=== PATIENT | female | born 1990 ===

== ENCOUNTER 2020-09-29 06:43 | Inpatient (IN) | payer OTHER ==
[2020-09-29] VITALS (29 sets, daily range): BP systolic 105–146; BP diastolic 61–96
[~2020-09-29] VITALS: Ht 165.1 cm; Wt 83.3 kg
[2020-09-29] MEDS ORDERED: MAPA500T2 PO (07:19)
[2020-09-29] MEDS ORDERED: PRENTAB9 PO (07:19)
[2020-09-29 09:11] LABS: APPEARANCE, URINE CLEAR (CLEAR); BACTERIA, URINE AUTO NEGATIVE (NEGATIVE); BILIRUBIN, URINE AUTO NEGATIVE (NEGATIVE); BLOOD, URINE BLOOD 1+ (NEGATIVE); COLOR, URINE STRAW (YELLOW); GLUCOSE, URINE (UA) AUTO NEGATIVE (NEGATIVE); KETONE, URINE AUTO NEGATIVE (NEGATIVE); LEUKOCYTE ESTERASE, URINE AUTO NEGATIVE (NEGATIVE); NITRITE, URINE AUTO NEGATIVE (NEGATIVE); PROTEIN, URINE AUTO NEGATIVE (NEGATIVE); RBC, URINE AUTO 0 /HPF (0-3); SPECIFIC GRAVITY URINE AUTO 1.002 (1.002-1.035); SQUAMOUS EPITHELIAL CELL UR AU 4 /HPF (0-6); UROBILINOGEN, URINE AUTO 0.2 mg/dL (0.0-2.0); WBC, URINE AUTO 0 /HPF (0-3)
[2020-09-29 09:44] LABS: CREATININE,RANDOM URINE 18.6 MG/DL; TOTAL PROTEIN,RANDOM URINE < 5.0 MG/DL (0.0-12.0)
--- NOTE | 2020-09-29 10:03 | REP ---
INDICATION: HTN. COMPARISON: None. TECHNIQUE: Real-time sonographic evaluation of gravid uterus performed. FINDINGS: There is a single living intrauterine gestation. The estimated gestational age is 30 weeks 3 days, EDC 10/10/2020. position cephalic. Placenta anterior and grade 3 with no previa or abruption. heart rate 144 beats per minute. There is oligohydramnios. REBECCA 1.8, normal range 7.3-23.3. Biophysical profile score 2/8. Breathing 2 points. Tone, movement, amniotic fluid volume 0 points. SD ratio umbilical artery 3.27, normal range 1.53-3.33. RI 0.69, normal range is 0.42-0.70. IMPRESSION: Biophysical profile 2/8. <Electronically signed by Colin Thornton > 09/29/20 0959
[2020-09-29 10:14] LABS: HEMATOCRIT 37.7 % (36.0-47.0); HEMOGLOBIN 11.9 g/dl (12.0-15.5); MEAN CORPUSCULAR HEMOGLOBIN 28.8 pg (27.0-33.0); MEAN CORPUSCULAR HGB CONC 31.6 g/dl (32.0-36.5); MEAN CORPUSCULAR VOLUME 91.3 fl (80.0-96.0); PLATELET COUNT, AUTOMATED 219 10^3/uL (150-450); RED BLOOD COUNT 4.13 10^6/uL (4.00-5.40); WHITE BLOOD COUNT 13.1 10^3/uL (4.0-10.0)
[2020-09-29 10:35] LABS: ALBUMIN 2.7 GM/DL (3.2-5.2); ALT/SGPT 11 U/L (12-78); BILIRUBIN,TOTAL 0.3 MG/DL (0.2-1.0); BLOOD UREA NITROGEN 5 MG/DL (7-18); CALCIUM LEVEL 8.2 MG/DL (8.5-10.1); CARBON DIOXIDE LEVEL 24 MEQ/L (21-32); CHLORIDE LEVEL 108 MEQ/L (98-107); GLOMERULAR FILTRATION RATE > 60.0 (>60); GLUCOSE, FASTING 79 MG/DL (70-100); LDH LACTATE DEHYDROGENASE 198 U/L (84-246); POTASSIUM SERUM 3.9 MEQ/L (3.5-5.1); SODIUM LEVEL 139 MEQ/L (136-145); TOTAL PROTEIN 6.4 GM/DL (6.4-8.2); URIC ACID 5.3 MG/DL (2.6-6.0)
[2020-09-29] MEDS ORDERED: LR 1,000 ML IV SCH (10:47)
[2020-09-29] MEDS ORDERED: LACTATED RINGER'S 1000 ML IV STA (10:47)
[2020-09-29] MEDS ORDERED: miSOPROStol 25MCG 1/4 TABLET PV SCH (11:00)
--- NOTE | 2020-09-29 11:18 | IPNPDOC ---
Obstetrical Progress Note Date of Service Sep 29, 2020 Subjective 30 y/o at 38w3d with KEVIN of 10/10/2020 presents today with her spouse for mucousy brown blood tinged discharge and contractions. She denies any leaking of fluid and reports positive movement. She reports headache once a day that tends to resolve spontaneously. She denies chest pain, RUQ pain, and visual changes. Objective Vital Signs Date Time Temp Pulse Resp B/P (MAP) Pulse Ox O2 Delivery O2 Flow Rate FiO2 09/29/20 07:21 18 115/69 (84) 09/29/20 07:07 98.5 102 She has had mildly elevated BP since she arrived to triage of 133/93 and 128/94. BPP: 2/8 and REBECCA: 1.8 cm Assessment Heart Rate (FHR): 155 Variability: Moderate Accelerations: Positive Decelerations: None Tocometer Contractions: Yes Frequency: irregular Sterile Vaginal Examination Dilation: None Effacement (%): 30% Station: -3 Cervical Consistency: Firm Cervical Position: Posterior Postion/Presentation: Cephalic presentation Assessment and Plan Age: 30 : 1 Term: 0 Pre-term: 0 Abortions: 0 Livin EGA at Admission: 38 (+3) Weeks & Days 38w3d Status: Reassuring Group B Streptococcus: Negative Anticipate: Other Additional Comments Will admit to L&D for IOL for oligohydramnios and BPP 11/03 JOZEF CLAY CNM Sep 29, 2020 09:06
[2020-09-29] MEDS ORDERED: OXYTOCIN 30 UNITS IN 0.9% NaCl 500ML IV BAG (J2590) As Ordered ONE (11:48)
[2020-09-29] MEDS: OXYTOCIN DRIP 30 UNITS in IV 1 EA IV SCH (12:10)
[2020-09-29] MEDS: LR 1,000 ML IV SCH ×2 (12:11→20:34)
--- NOTE | 2020-09-29 12:38 | HPEPDOC ---
Obstetrical History & Physical General Date of Admission Sep 29, 2020 at 10:13 History of Present Illness 30 yo at 38w3d with KEVIN of 10/10/2020 presents to L&D with complaints of brown blood streaked mucousy dicharge and contractions since last night. She has had mildly elevated BP today. She reports daily headaches that have resolved spontaneously. She denies headache, chest pain, RUQ pain, visual changes, leaking of fluid at this time. She reports positive movement. 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: No pertinent history Past Medical History Medical History Migraines, Rh negative, and vegetarian Surgical History: Appendectomy, Tonsilectomy Family History Significant Family History: No pertinent family hx Social History Marital Status: Family situation: Spouse/partner home Psychosocial History: No pertinent psych hx * Smoker: non-smoker Alcohol: Denies Drugs: denies Abuse Violence Screening Have you been hit/kicked/slapp: No Have you been sexually assault: No Imunizations Tdap status: current Influenza Status: current Allergies Coded Allergies: No Known Drug Allergies (Verified Allergy, Unknown, 09/29/20) Medications Scheduled No.137/Iron/Folic Acd ( Vitamin Tablet) 1 Each Tablet, 1 TAB PO DAILY Miscellaneous Medications Acetaminophen (Mapap) 500 Mg Tablet, 1,000 MG PO Physical Examination Physical Examination GENERAL: Alert and oriented times three. BREAST: . ABDOMEN: Gravid and non-tender to touch. FETUS: Is vertex (VTX) by sterile vaginal examination (SVE), fetus is vertex (VTX) by José. HEART RATE: Regular rate and rhythm. LUNGS: Clear to auscultation (CTA). EXTREMITIES: No edema. No clonus. Deep tendon reflexes (DTRs) + 2. Vital Signs/I&O Vital Signs Date Time Temp Pulse Resp B/P (MAP) Pulse Ox O2 Delivery O2 Flow Rate FiO2 09/29/20 07:21 18 115/69 (84) 09/29/20 07:07 98.5 102 Laboratory Data 24H LABS Laboratory Tests 2 09/29/20 08:52: Urine Color STRAW, Urine Appearance CLEAR, Urine pH 7.0, Urine Specific [place] 1.002, Urine Protein NEGATIVE, Urine Glucose (Auto)(UA) NEGATIVE, Urine Ketones (Auto) NEGATIVE, Urine Blood 1+H, Urine Nitrite NEGATIVE, Urine Bilirubin NEGATIVE, Urine Urobilinogen 0.2, Urine Leukocyte Esterase (Auto) NEGATIVE, Urine WBC (Auto) 0, Urine RBC (Auto) 0, Urine Hyaline Casts (Auto) 0, Urine Bacteria (Auto) NEGATIVE, Urine Squamous Epithelial Cells 4, Urine Sperm (Auto) , Urine Random Creatinine 18.6, Urine Random Total Protein < 5.0 09/29/20 09:49: Nucleated Red Blood Cells % (auto) 0.0, Anion Gap 7L, Glomerular Filtration Rate > 60.0, Uric Acid 5.3, Calcium Level 8.2L, Total Bilirubin 0.3, Aspartate Amino Transf (AST/SGOT) 13, Alanine Aminotransferase (ALT/SGPT) 11L, Alkaline Phos phatase 159H, Lactate Dehydrogenase 198, Total Protein 6.4, Albumin 2.7L, Albumin/Globulin Ratio 0.7L 09/29/20 10:31: Serology Scanned Report Hepatitis B Testing 09/29/20 11:02: CBC/BMP Laboratory Tests 09/29/20 09:49 Pertinent Laboratoy Data Blood Type: A- RBC Antibody Screen: Negative HIV: Negative Hepatitis B: Negative Rapid Plasma Reagin: Nonreactive Rubella: Immune Varicella: Immune Chlamydia/Gonorrhea: Negative Group B Streptococcus: Negative Cystic Fibrosis: Negative Glucose Tolerance Test: 118 Steroid Therapy Steroid Therapy: No Vaginal Examination Dilation: None Effacement: 30% Station: -3 Cervical Consistency: Firm Cervical Position: Posterior Presentation: Cephalic presentation Position: Vertex (occiput) Assessment Heart Rate (FHR): 145 Variability: Moderate Accelerations: Positive Decelerations: None Tocometer Contractions: Yes Frequency: irregular Multi-drug resistant Organism: No history of MDRO Assessment/Plan Assessment 30 yo at 38w3d with KEVIN of 10/10/2020 presents to L&D with complaints of brown blood streaked mucousy dicharge and contractions since last night. She has had mildly elevated BP today. She reports daily headaches that have resolved spontaneously. She denies headache, chest pain, RUQ pain, visual changes, leaking of fluid at this time. She reports positive movement. Plan Admit and orient. Barrel Planer and consent. Diet: clear liquids. Group B Streptococcus (GBS) negative. Labs and intravenous (IV) per unit protocol. Counseled on Cytotec, Pitocin and induction of labor (IOL). Lactated Ringers (LR): Bolus 1000 mL, then at 125 mL/hr. Anticipate normal spontaneous delivery (). C-S as appropriate. Oxytocin for PIER MASTER ASSISTANT x30 minutes, if negative, then will proceed with IOL as planned with cytotec Dr. Lozano updated on patient status, who agrees with plan Labor and Delivery Counseling Discussed with patient and spouse using cytotec vaginally for IOL, IV pain medication and epidural, IOL and using pitocin for augmentation once IOL has started and progressed, risk of hemorrhage, and risk of section. We discussed oligohydramnios and BPP results and need to start IOL today. JOZEF CLAY CNM Sep 29, 2020 11:37
[2020-09-29 15:03] LABS: RSV AMPLIFICATION NEGATIVE (NEGATIVE)
[2020-09-29] MEDS ORDERED: diphenhydrAMINE 25MG CAP PO ONE (21:45)
[2020-09-29] MEDS ORDERED: miSOPROStol 50MCG 1/2 TABLET PO ONE (21:45)
[2020-09-29] MEDS ORDERED: BUTORPHANOL 2 MG/ML INJ (J0595) IV ONE (23:45)
[2020-09-29] MEDS ORDERED: PROMETHAZINE INJ 25 MG/ML VIAL (J2550) IV ONE (23:45)
[2020-09-30] VITALS (36 sets, daily range): BP systolic 111–161; BP diastolic 59–95
--- NOTE | 2020-09-30 00:51 | IPNPDOC ---
Obstetrical Progress Note Date of Service Sep 30, 2020 Subjective Patient endorses pain with contractions. She also expresses frustration with length of induction and interested in . Objective Vital Signs Date Time Temp Pulse Resp B/P (MAP) Pulse Ox O2 Delivery O2 Flow Rate FiO2 09/29/20 23:44 75 16 111/68 (82) 09/29/20 18:13 99.3 Assessment Heart Rate (FHR): 150 Variability: Moderate Accelerations: None Decelerations: None Heart Rate Tracing: Category I Tocometer Contractions: Yes Frequency: irregular Sterile Vaginal Examination Dilation: 1cm Effacement (%): 50% Station: -2 Cervical Consistency: Medium Cervical Position: Posterior Postion/Presentation: Cephalic presentation Assessment and Plan Status: Reassuring Group B Streptococcus: Negative Anticipate: Vaginal Delivery Additional Comments 30yo at 38+4wks admitted for oligohydramnios with BPP 2/8. 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 She received 2 doses and progressed to 1/50/-3. Extensive conversation with patient regarding continuing IOL vs elective c/s. Patient ultimately desired to continue with IOL at this time. Will give stadol/phenergan for pain. Will give continue cytotec protocol overnight. Plan to allow to eat breakfast in AM. Patient desires to proceed, safe to continue. DEWAYNE SABILLON DO Sep 30, 2020 00:51
[2020-09-30] MEDS ORDERED: miSOPROStol 50MCG 1/2 TABLET PO ONE (02:00)
[2020-09-30] MEDS ORDERED: FENTANYL 2MCG/ML ROPIVACAINE 0.2% IN 0.9% NACL 100ML IVBAG As Ordered ONE (05:29)
--- NOTE | 2020-09-30 06:02 | IPNPDOC ---
Obstetrical Progress Note Date of Service Sep 30, 2020 Subjective Patient desires epidural for pain mgmt Objective Vital Signs Date Time Temp Pulse Resp B/P (MAP) Pulse Ox O2 Delivery O2 Flow Rate FiO2 09/29/20 23:44 75 16 111/68 (82) 09/29/20 18:13 99.3 Assessment Heart Rate Tracing: Category I Tocometer Contractions: Yes Frequency: every 1-5 min. Sterile Vaginal Examination Dilation: 3 cm Effacement (%): 70% Station: -2 Cervical Consistency: Soft Cervical Position: Middle Postion/Presentation: Cephalic presentation Assessment and Plan Status: Reassuring Group B Streptococcus: Negative Additional Comments 30yo at 38+2wks presenting for IOL for oligo with BPP 2/8 now s/p 3 doses of cytotec progressing to 3/70/-2. FHRT cat I. Patient to get epidural now as desired. Will start pitocin protocol once patient comfortable with epidural. Patient desires to proceed, safe to continue. DEWAYNE SABILLON DO Sep 30, 2020 06:02
[2020-09-30] MEDS ORDERED: EPIDURAL/PCA KEYS XX PRN (06:25)
[2020-09-30] MEDS ORDERED: diphenhydrAMINE 50MG/ML VIAL (J1200) IV PRN (06:25)
[2020-09-30] MEDS ORDERED: REFRIGERATOR IV KEYS XX PRN (06:25)
[2020-09-30] MEDS ORDERED: EPIDURAL COMMENT XX SCH (06:25)
[2020-09-30] MEDS ORDERED: ePHEDrine SULFATE 25 MG/5 ML(5MG/ML) SYRINGE IV PRN (06:25)
[2020-09-30] MEDS ORDERED: ONDANSETRON 4MG/2ML VIAL IV PRN ×2 (06:25→21:30)
[2020-09-30] MEDS ORDERED: NALOXONE INJ 0.4MG/1ML VIAL (J2310 PER 1MG) IV PRN (06:25)
[2020-09-30] MEDS ORDERED: LACTATED RINGER'S 1000 ML IV PRN (06:25)
[2020-09-30] MEDS: FENTANYL/ROPIVACAINE/NACL BAG 100 ML EPIDURAL SCH ×2 (07:00→14:35)
--- NOTE | 2020-09-30 08:19 | IPNPDOC ---
Obstetrical Progress Note Date of Service Sep 30, 2020 Subjective 30 y/o at 38w4d with KEVIN of 10/10/2020 admitted for oligohydramnios and BPP of 2/8. She is comfortable with her epidural. She has supportive family at the bedside. Objective Vital Signs Date Time Temp Pulse Resp B/P (MAP) Pulse Ox O2 Delivery O2 Flow Rate FiO2 09/29/20 23:44 75 16 111/68 (82) 09/29/20 18:13 99.3 Assessment Heart Rate (FHR): 145 Variability: Moderate Accelerations: Present Decelerations: Variable Tocometer Contractions: Yes Frequency: irregular, other (every 3-5 minutes) Assessment and Plan Age: 30 : 1 Term: 0 Pre-term: 0 Abortions: 0 Livin EGA at Admission: 38 (+3) Weeks & Days 38w4d Status: Reassuring Group B Streptococcus: Negative Anticipate: Vaginal Delivery Additional Comments Will start JOZEF Galo CNM Sep 30, 2020 08:17
[2020-09-30] MEDS: OXYTOCIN DRIP 30 UNITS in IV 1 EA IV SCH (08:29)
[2020-09-30] MEDS: LR 1,000 ML IV SCH ×3 (08:33→16:14)
--- NOTE | 2020-09-30 11:00 | IPNPDOC ---
Obstetrical Progress Note Date of Service Sep 30, 2020 Subjective 30 y/o at 38w4d with KEVIN of 10/10/2020 admitted for oligohydramnios and BPP of 2/8. She is comfortable with her epidural and asleep. She has supportive family at the bedside. Objective Vital Signs Date Time Temp Pulse Resp B/P (MAP) Pulse Ox O2 Delivery O2 Flow Rate FiO2 09/30/20 09:28 76 16 116/66 (83) 09/30/20 08:13 100 Room Air 09/30/20 07:27 98.3 Assessment Heart Rate (FHR): 155 Variability: Moderate Accelerations: None Decelerations: Variable Tocometer Contractions: Yes Frequency: other (every 3-4 min ) Sterile Vaginal Examination Dilation: 8 cm Effacement (%): 80% Station: -1 Postion/Presentation: Cephalic presentation Assessment and Plan Age: 30 : 1 Term: 0 Pre-term: 0 Abortions: 0 Livin EGA at Admission: 38 (+3) Weeks & Days 38w4d Status: Reassuring Group B Streptococcus: Negative Anticipate: Vaginal Delivery JOZEF CLAY CNM Sep 30, 2020 11:00
--- NOTE | 2020-09-30 15:26 | IPNPDOC ---
Obstetrical Progress Note Date of Service Sep 30, 2020 Subjective 30 y/o at 38w4d with KEVIN of 10/10/2020 admitted for oligohydramnios and BPP of 2/8. She is comfortable with her epidural and asleep. She denies any urge to push at this time. She has supportive family at the bedside. She had SROM'd for clear fluid. Objective Vital Signs Date Time Temp Pulse Resp B/P (MAP) Pulse Ox O2 Delivery O2 Flow Rate FiO2 09/30/20 13:58 98 16 125/77 (93) 09/30/20 13:28 98.4 09/30/20 08:13 100 Room Air Cervical exam 10/100/+1, practice pushing through 2 contractions with no descent of head with practice pushing. Pitocin at 4 mu/min Assessment Heart Rate (FHR): 165 Variability: Moderate Accelerations: Present Decelerations: Variable Tocometer Contractions: Yes Frequency: regular, other (every 3-4 minutes) Sterile Vaginal Examination Dilation: complete Effacement (%): 100% Station: +1, +2 Postion/Presentation: Cephalic presentation Assessment and Plan Age: 30 : 1 Term: 0 Pre-term: 0 Abortions: 0 Livin EGA at Admission: 38 (+3) Weeks & Days 38w4d Group B Streptococcus: Negative Anticipate: Vaginal Delivery (Will continue to labor down until she has urge to push or will trial pushing again in 1 hour) JOZEF CLAY CNM Sep 30, 2020 15:26
--- NOTE | 2020-09-30 17:53 | IPNPDOC ---
Text Note Date of Service The patient was seen on 09/30/20. NOTE Review of progress to date . admitted 38.3 weeks, contractions mild mid range bp us BPP 2/8 with oligohydramnios . had Cytotec,epidural and Pitocin. at 1530 hours was fully no urge to push. evaluate at 1730 hours has urge to push, pelvic position rot moulded category 1 with tachycardia no decelerations variables noted.Plan is to attempt pushing if no progress then delivery by primary cs due to CPD . 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
[2020-09-30] MEDS ORDERED: ceFAZolin 2 GM/D5W 50 ML IV BAG (J0690 PER 500MG) As Ordered ONE (20:02)
[2020-09-30] MEDS ORDERED: OXYTOCIN INJ 10 UNITS/ML VIAL (J2590) As Ordered ONE (20:05)
[2020-09-30] MEDS ORDERED: OXYTOCIN 30 UNITS IN 0.9% NaCl 500ML IV BAG (J2590) As Ordered ONE ×2 (20:06→21:17)
[2020-09-30] MEDS ORDERED: LIDOCAINE PRES-FREE 2% 10ML AMP As Ordered ONE (20:07)
[2020-09-30 20:32] LABS: CORD GAS ABE V -7.1; CORD GAS HCO3 V 21.4 MEQ/L; CORD GAS PCO2 V 54.4 mmHg; CORD GAS PH V 7.213 UNITS; CORD GAS SBC V 17.6 MEQ/L; CORD GAS TCO2 V 23.1 MEQ/L
[2020-09-30 20:33] LABS: CORD GAS ABE A -8.8; CORD GAS HCO3 A 22.1 MEQ/L; CORD GAS O2 SAT A < 15.0 %; CORD GAS PCO2 A 71.1 mmHg; CORD GAS PH A 7.111 UNITS; CORD GAS PO2 A < 10.0 mmHg; CORD GAS TCO2 A 24.3 MEQ/L
[2020-09-30] MEDS ORDERED: PHENYLephrine 500MCG 5ML (100MCG/ML) SYRINGE As Ordered ONE (20:44)
[2020-09-30] MEDS ORDERED: propofoL 200 MG/20 ML VIAL As Ordered ONE (20:45)
[2020-09-30] MEDS ORDERED: KETOROLAC 60MG 2ML VIAL As Ordered ONE (20:46)
[2020-09-30] MEDS ORDERED: BENZOCAINE 20% HEMORRHOIDAL OINTMENT 28GM TUBE TOP PRN (21:15)
[2020-09-30] MEDS ORDERED: OXYTOCIN DRIP 30 UNITS in IV 1 EA IV ONE (21:15)
[2020-09-30] MEDS ORDERED: MEASLES,MUMPS,RUBELLA VACCINE INJ (MMR-II) (90707) SC SCH (21:15)
[2020-09-30] MEDS ORDERED: DOCUSATE SODIUM 100MG CAPSULE PO PRN (21:15)
[2020-09-30] MEDS ORDERED: ANUSOL HC CREAM 30GM TOP PRN (21:15)
[2020-09-30] MEDS ORDERED: IBUPROFEN 600MG TAB PO PRN (21:15)
[2020-09-30] MEDS ORDERED: RHOGAM 300 MCG (1500 IU) INJ (J2790) IM SCH (21:15)
[2020-09-30] MEDS ORDERED: IBUPROFEN 800 MG TAB PO PRN (21:15)
[2020-09-30] MEDS ORDERED: OXYTOCIN INJ 10 UNITS/ML VIAL (J2590) IV ONE (21:15)
[2020-09-30] MEDS ORDERED: METHYLERGONOVINE MALEATE 0.2 MG TAB PO PRN (21:15)
[2020-09-30] MEDS ORDERED: MOM 30ML SUSPENSION UDC PO PRN (21:15)
[2020-09-30] MEDS ORDERED: ACETAMINOPHEN TAB 650MG DOSE (2X325MG) PO PRN (21:15)
[2020-09-30] MEDS ORDERED: KETOROLAC 30 MG/ML 1ML VIAL IV PRN (21:30)
[2020-09-30] MEDS: ACETAMINOPHEN 500 MG TAB PO PRN (22:55)
[2020-10-01 06:30] VITALS: BP 126/86
[2020-10-01] MEDS: ACETAMINOPHEN 500 MG TAB PO PRN ×3 (06:43→20:09)
[2020-10-01 07:13] LABS: HEMATOCRIT 26.8 % (36.0-47.0); HEMOGLOBIN 8.3 g/dl (12.0-15.5); MEAN CORPUSCULAR VOLUME 93.7 fl (80.0-96.0); PLATELET COUNT, AUTOMATED 151 10^3/uL (150-450); RED BLOOD COUNT 2.86 10^6/uL (4.00-5.40); WHITE BLOOD COUNT 18.9 10^3/uL (4.0-10.0)
[2020-10-01] MEDS ORDERED: IBUPROFEN 600MG TAB PO PRN (08:00)
[2020-10-01] MEDS: PRENATAL VITAMINS CHEWABLE TABLET PO SCH (08:02)
--- NOTE | 2020-10-01 08:39 | IPNPDOC ---
Progress Note Date of Service: Oct 01, 2020 Day#: 1 Progress Note SUBJECT: 30 year-old 1 now Para 1 status post complicated spontaneous vaginal delivery at 38.3 weeks' on 09/30/20 of a FEMALE 6 pounds 11 ounces 3020 grams) with post vaginal laceration and repair, POST MANUAL REMOVAL OF PLACENTA doing well day # 1. She has been ambulating, voiding spontaneously without issue and tolerating regular diet. Breast feeding without issue. Reports lochia is [like a normal period]. Patient is ambulating well. [Reports some cramping with . Denies any pain. Voiding and stooling without difficulty]. OBJECTIVE: VITAL SIGNS: Within normal limits, afebrile. Alert and oriented times three. Breath sounds clear to auscultation. Heart rate: Regular rate and rhythm, no murmurs, rubs or gallops. Abdomen: Fundus firm at U-2. Soft, NTTP. [Minimal] lochia. ASSESSMENT: 30-year-old 1 now Para 1 status post complicated spontaneous vaginal delivery WITH MANUAL REMOVAL PLACENTA after presenting in active labor with CONTRACTIONS AND OLIGOHYDRAMNIOS delivered at 38.3 WEEKS doing well on day 1. Vitals within normal limits, afebrile, hemo dynamically stable with no evidence of infection. PLAN: 1. Discharge to home TOMORROW 2. Tylenol and Motrin for pain. 3. Encourage breast feeding and ambulation. 4. DISCUSS BC AT 6 WEEK PP 5. Routine PP visit in 6 weeks in clinic. 6. Discussed return precautions at length. Item Value Date Time White Blood Count 18.9 10^3/uL H 10/01/20 0650 Red Blood Count 2.86 10^6/uL L 10/01/20 0650 Hemoglobin 8.3 g/dl L # 10/01/20 0650 Hematocrit 26.8 % L 10/01/20 0650 Mean Corpuscular Volume 93.7 fl 10/01/20 0650 Mean Corpuscular Hemoglobin 29.0 pg 10/01/20 0650 Mean Corpuscular Hemoglobin Concent 31.0 g/dl L 10/01/20 0650 Red Cell Distribution Width 13.6 % 10/01/20 0650 Platelet Count 151 10^3/uL 10/01/20 0650 Nucleated Red Blood Cells % (auto) 0.0 % 10/01/20 0650 White Blood Count 13.1 10^3/uL H 09/29/20 0949 Red Blood Count 4.13 10^6/uL 09/29/20 0949 Hemoglobin 11.9 g/dl L 09/29/20 0949 Hematocrit 37.7 % 09/29/20 0949 Mean Corpuscular Volume 91.3 fl 09/29/20 0949 Mean Corpuscular Hemoglobin 28.8 pg 09/29/20 0949 Mean Corpuscular Hemoglobin Concent 31.6 g/dl L 09/29/20 0949 Red Cell Distribution Width 13.2 % 09/29/20 0949 Platelet Count 219 10^3/uL 09/29/20 0949 Nucleated Red Blood Cells % (auto) 0.0 % 09/29/20 0949 VS, I&O, 24H, Fishbone Vital Signs/I&O Vital Signs Date Time Temp Pulse Resp B/P (MAP) Pulse Ox O2 Delivery O2 Flow Rate FiO2 10/01/20 06:30 98.4 87 18 126/86 (99) 98 Room Air I&O- Last 24 Hours up to 6 AM 10/01/20 06:00 Intake Total 3840 ml Output Total 3100 ml Balance 740 ml Laboratory Data 24H LABS Laboratory Tests 2 09/30/20 19:28: Cord Arterial Blood pH 7.111, Cord Arterial Blood PCO2 71.1, Cord Arterial Blood PO2 < 10.0, Cord Arterial Blood HCO3 22.1, Cord Arterial Blood Total CO2 24.3, Cord Arterial Blood Base Excess -8.8, Cord Arterial Base Excess (Standard , Cord Arterial Bld Oxygen Saturation < 15.0, Cord Venous Blood pH 7.213, Cord Venous Blood PCO2 54.4, Cord Venous Blood PO2 21.0, Cord Venous Blood HCO3 21.4, Cord Venous Blood Total CO2 23.1, Cord Venous Base Excess (Actual) -7.1, Cord Venous Base Excess (Standard) 17.6, Cord Venous Blood Oxygen Saturation 47.0 10/01/20 06:50: Nucleated Red Blood Cells % (auto) 0.0 CBC/BMP Laboratory Tests 10/01/20 06:50 Teddy Gipson MD Oct 01, 2020 08:36
--- NOTE | 2020-10-01 09:17 | DN ---
DELIVERY NOTE DATE OF DELIVERY: 09/30/2020 GENDER: Female. APGARS: 7 and 9 at one and five minutes respectively. LACERATIONS: Small first-degree tear. ESTIMATED BLOOD LOSS: Approximately 200 mL. DESCRIPTION OF DELIVERY: This lady is a 30-year-old 1, who was admitted at 38 and 3 weeks gestation with contractions, oligohydramnios with a BPP of 2/8, and negative contraction stress test. She has an epidural in place for prolonged induction of labor, got fully dilated, asynclitic head. Had a spontaneous vaginal delivery of a female infant, covered in meconium, 6 pounds 11 ounces (3020 grams). Apgars of 7 and 9 at one and five minutes respectively. Cord around the body x1. Arterial pH 7.11, base excess -8.8; venous pH 7.21, base excess -7.1. She sustained a small first-degree tear. The cord was very thin and frail covered in meconium with three vessels. After 35 minutes, she did not spontaneously deliver the placenta and required manual exploration in the UA in the OR. The estimated blood loss from delivery was about 200 mL. The uterus was contracted well down on Pitocin; but after adequate time, it was obvious that the placenta was not going to spontaneously deliver. Therefore, the patient was consented and she was taken back to the operating theater for manual removal of the placenta and repair of the first-degree tear. Patient and baby tolerated procedure well.
--- NOTE | 2020-10-01 09:32 | RO ---
OPERATIVE NOTE DATE OF OPERATION: 09/30/2020 INDICATIONS FOR PROCEDURE: This lady had a retained placenta after delivery approximately 30-35 minutes. After adequate explanation through a percussion teacher about a manual removal and repair of the first-degree tear, the patient expressed understanding of the issue and was consented and signed the consent form. SURGEON: Teddy Gipson MD DESCRIPTION OF PROCEDURE: After adequate anesthesia, both using her epidural and general anesthetic, prepped and draped in the lithotomy position. Roque catheter was still in the bladder draining blood-tinged urine. The perineum was prepped. The ring forceps, which was on the cord, was removed. A manual removal of the placenta was performed, and the placenta was sent off to pathology under separate cover. The uterus contracted well down on Pitocin. The patient was given an initial 5 units IV push and the bag of 30 units in 500 was opened, and she received Cytotec 1000 mg/rectum. Prior to commencement of the procedure, she was given 2 grams of Ancef IV. Total blood loss at the EUA and manual exploration was about 200 mL. The patient tolerated the procedure well. On completion of the procedure, instrument and pad count correct. The uterus was firm, 2 below, lochia was [id number]. The patient was taken to recovery in good condition.
[2020-10-01] MEDS: IBUPROFEN 800 MG TAB PO PRN ×2 (10:08→17:32)
[2020-10-01 18:00] VITALS: BP 130/91
[2020-10-01] MEDS ORDERED: oxyCODONE 5MG TAB PO ONE (20:45)
[2020-10-02 06:00] VITALS: BP 118/73
--- NOTE | 2020-10-02 06:42 | IPNPDOC ---
Progress Note Date of Service: Oct 02, 2020 Day#: 2 Progress Note 30 year-old 1 now Para 1 status post complicated spontaneous vaginal delivery at 38.3 weeks' on 09/30/20 of a FEMALE 6 pounds 11 ounces 3020 grams) with post vaginal laceration and repair, POST MANUAL REMOVAL OF PLACENTA doing well day # 2. She has been ambulating, voiding spontaneously without issue and tolerating regular diet. Breast feeding without issue. Reports lochia is like a normal period. She reports some sharp vaginal pain that is controled with medication VITAL SIGNS: Within normal limits, afebrile. Alert and oriented times three. Breath sounds clear to auscultation. Heart rate: Regular rate and rhythms. Abdomen: Fundus firm at U-2. Soft, NTTP. [ ASSESSMENT: 30-year-old 1 now Para 1 status post complicated spontaneous vaginal delivery WITH MANUAL REMOVAL PLACENTA after presenting in active labor with CONTRACTIONS AND OLIGOHYDRAMNIOS delivered at 38.3 WEEKS doing well on day 2. Vitals within normal limits, afebrile, hemodynamically stable with no evidence of infection. PLAN: 1. Discharge to home Today 2. Tylenol and Motrin for pain. 3. Encourage breast feeding and ambulation. 4. minipill for contraception 5. Routine PP visit in 6 weeks in clinic. 6. Discussed return precautions at length VS, I&O, 24H, [place] Vital Signs/I&O Vital Signs Date Time Temp Pulse Resp B/P (MAP) Pulse Ox O2 Delivery O2 Flow Rate FiO2 10/02/20 05:29 18 10/01/20 18:00 99.6 96 130/91 (104) 97 Room Air I&O- Last 24 Hours up to 6 AM 10/02/20 06:00 Output Total 200 ml Balance -200 ml Laboratory Data 24H LABS Laboratory Tests 2 10/01/20 06:50: Nucleated Red Blood Cells % (auto) 0.0 CBC/BMP Laboratory Tests 10/01/20 06:50 TMA ONEAL MD Oct 02, 2020 06:42
[2020-10-02] MEDS ORDERED: DOK1CAP7 PO (06:47)
[2020-10-02] MEDS ORDERED: ACET-683 PO (06:47)
[2020-10-02] MEDS ORDERED: IBUP80TA PO (06:47)
[2020-10-02] MEDS: PRENATAL VITAMINS CHEWABLE TABLET PO SCH (08:32)
[2020-10-02] MEDS: IBUPROFEN 800 MG TAB PO PRN (08:33)
[2020-10-02] MEDS ORDERED: INFLUENZA QUADRIVALENT PF VACCINE 0.5ML SYRINGE IM ONE (09:00)
[2020-10-02] MEDS: ACETAMINOPHEN 500 MG TAB PO PRN (13:07)
== END 2020-10-02 13:45 | disposition home or self-care (01) | DRG 807 ==
LOC: M LDO 06:43 → M LDI 10:13 → M OBS 09-30 23:07
PROVIDERS: ADMIT Registered Nurse Maternal Newborn; ATTEND Registered Nurse Maternal Newborn
PROC: 3E0P7GC Introduction of Other Therapeutic Substance into Female Reproductive, Via Natural or Artificial Opening (ICD-10-PCS; 2020-09-29)
PROC: 10E0XZZ Delivery of Products of Conception, External Approach (ICD-10-PCS; 2020-09-30)
PROC: 0HQ9XZZ Repair Perineum Skin, External Approach (ICD-10-PCS; 2020-09-30)
PROC: 10D17Z9 Manual Extraction of Products of Conception, Retained, Via Natural or Artificial Opening (ICD-10-PCS; principal; 2020-09-30 20:15)
DX: O76 Abnormality in fetal heart rate and rhythm complicating labor and delivery (principal); Z37.0 Single live birth; Z3A.38 38 weeks gestation of pregnancy; O63.0 Prolonged first stage (of labor); O64.0XX0 Obstructed labor due to incomplete rotation of fetal head, not applicable or unspecified; O77.0 Labor and delivery complicated by meconium in amniotic fluid; O69.81X0 Labor and delivery complicated by cord around neck, without compression, not applicable or unspecified; O73.0 Retained placenta without hemorrhage; O70.0 First degree perineal laceration during delivery